=== PATIENT | female | born 2000 ===

== ENCOUNTER 2020-06-19 10:29 | Emergency (ER) | payer OTHER ==
[2020-06-19 10:44] VITALS: BP 132/82; PULSE 90; RESP 18; TEMP 98.6
--- NOTE | 2020-06-19 11:30 | ED ---
Extremity Problem HPI - General Chief complaint: Extremity Problem,Nontraumatic Stated complaint: Arm pain Time Seen by Provider: 06/19/20 10:52 Source: patient Mode of arrival: ambulatory Limitations: no limitations - History of Present Illness Initial comments: Patient is a 20-year-old female presenting to the emergency Department with complaints of pain in her left arm for the past week. She states the pain is intermittent, travels all the way down her arm. She denies any injury or trauma to the arm. She denies any previous surgeries. Patient has concerns that is coming from her heart. She denies any history of heart disease or heart problems. She denies any chest pain, shortness of breath, fever, chills, cough. She denies history of asthma. She denies taking any medications except for control. She denies history of blood clot. She denies any abdominal pain, nausea, vomiting. She has no further complaints at this time. Upon arrival to the ER, her vital signs are stable. - Related Data Allergies Allergy/AdvReac Type Severity Reaction Status Date / Time No Known Allergies Allergy Verified 06/19/20 10:44 Review of Systems ROS Statement: Those systems with pertinent positive or pertinent negative responses have been documented in the HPI. ROS Other: All systems not noted in ROS Statement are negative. Past Medical History Past Medical History: No Reported History History of Any Multi-Drug Resistant Organisms: None Reported Past Surgical History: No Surgical Hx Reported Past Psychological History: No Psychological Hx Reported Smoking Status: Never smoker Past Alcohol Use History: None Reported Past Drug Use History: None Reported General Exam - General Exam Comments Initial Comments: GENERAL: Patient is well-developed and well-nourished. Patient is nontoxic and in no acute distress. HEAD: Atraumatic, normocephalic. EYES: Pupils equal round and reactive to light, extraocular movements intact, sclera anicteric, conjunctiva are normal. Eyelids were unremarkable. ENT: TMs normal, nares patent, oropharynx clear without exudates. Moist mucous membranes. NECK: Normal range of motion, supple without lymphadenopathy or JVD. LUNGS: Unlabored respirations. Breath sounds clear to auscultation bilaterally and equal. No wheezes rales or rhonchi. HEART: Regular rate and rhythm without murmurs, rubs or gallops. ABDOMEN: Soft, nontender, normoactive bowel sounds. No guarding, no rebound. No masses appreciated. : Deferred MUSCULOSKELETAL: Patient has full range of motion of the left upper extremity, no pain with palpation, neurovascular intact, no overlying erythema or swelling. Normal extremities with adequate strength and normal range of motion, no pitting or edema. No clubbing or cyanosis. NEUROLOGICAL: Normal speech, normal gait. PSYCH: Normal mood, normal affect. SKIN: Warm, Dry, normal turgor, no rashes or lesions noted. Limitations: no limitations Course Vital Signs 06/19/20 10:41 Temperature 98.6 F Pulse Rate 90 Respiratory 18 Rate Blood Pressure 132/82 O2 Sat by Pulse 100 Oximetry Medical Decision Making - Medical Decision Making Patient is a 20-year-old female presenting with left arm pain times one week. Patient was concerned that it could be related to her heart. Her vital signs are stable she's been afebrile. She has no chest pain, no shortness of breath, no cough. She denies history of heart disease, blood clots. Her EKG shows normal sinus rhythm, no signs of acute ischemia. I discussed that with the patient that her pain in her arm is mostly related to muscle skeletal. I recommended taking ibuprofen. She can follow up with her PCP. She is stable for discharge. She is in agreement with that plan of care. Return parameters were discussed with the patient she verbalized understanding. Case discussed with Dr. Lynn. - EKG Data EKG Comments: Normal sinus rhythm, normal ECG, no signs of acute ischemia. Ventricular rate 94, MI interval 166, QT 348. Disposition Clinical Impression: Left arm pain Disposition: HOME SELF-CARE Condition: Stable Instructions (If sedation given, give patient instructions): Arm Pain (ED) Additional Instructions: Please return to the Emergency Department if symptoms worsen or any other concerns. Recommend ibuprofen for discomfort. Follow-up with PCP. Is patient prescribed a controlled substance at d/c from ED?: No Referrals: None,Stated [Primary Care Provider] - 1-2 days Maty Rodgers MD [STAFF PHYSICIAN] - 1-2 days
== END 2020-06-19 11:55 | disposition home or self-care (01) ==
LOC: EC 10:29
DX: M79.602 Pain in left arm (principal); X58.XXXA Exposure to other specified factors, initial encounter
CPT/HCPCS: 93005; 99283